=== PATIENT | female | born 2000 | race African-American/Black ===

== ENCOUNTER 2020-09-14 12:08 | Emergency (ER) | payer OTHER ==
[~2020-09-14] VITALS: Ht 162.6 cm; Wt 75.0 kg
[2020-09-14 12:20] VITALS: BP 125/66
[2020-09-14 13:12] LABS: BASO # 0.1 x10^3/uL (0.0-0.2); BASO % 1 % (0-3); EOS # 0.2 x10^3/uL (0.0-0.7); EOS % 3 % (0-3); HEMOGLOBIN 12.3 g/dL (12.0-15.5); LYMPH # 2.9 x10^3/uL (1.0-4.8); LYMPH % 36 % (24-48); MEAN CORPUSCULAR HEMOGLOBIN 22 pg (25-35); MEAN CORPUSCULAR HGB CONC 31 g/dL (31-37); MEAN CORPUSCULAR VOLUME 72 fL (79-100); MONO % 12 % (0-9); NEUT % 49 % (31-73); PLATELET COUNT 239 x10^3/uL (140-400); RED BLOOD COUNT 5.55 x10^6/uL (3.50-5.40); RED CELL DISTRIBUTION WIDTH 15.1 % (11.5-14.5); WHITE BLOOD COUNT 8.1 x10^3/uL (4.0-11.0)
[2020-09-14 13:29] LABS: ALBUMIN 3.7 g/dL (3.4-5.0); ALBUMIN/GLOBULIN RATIO 0.9 (1.0-1.7); CALCIUM 9.3 mg/dL (8.5-10.1); CREATININE 0.9 mg/dL (0.6-1.0); POTASSIUM 3.9 mmol/L (3.5-5.1); TOTAL BILIRUBIN 0.3 mg/dL (0.2-1.0); TOTAL PROTEIN 7.9 g/dL (6.4-8.2)
--- NOTE | 2020-09-14 14:20 | RAD ---
OB ultrasound less than 14 weeks to include transabdominal and transvaginal imaging 09/14/2020 CLINICAL HISTORY: First trimester with vaginal bleeding. TECHNIQUE: Using the distended urinary bladder as a sonographic window, a real-time ultrasound examination of thepelvis was performed. Additionally in an attempt to better evaluate the uterus and adnexa, a transvaginal ultrasound study was performed. Multiple images were obtained. FINDINGS: A gestational sac is seen within the endometrial canal within the body/fundus of the uterus. Sithin this gestational sac a yolk sac is seen. No embryonic pole is seen at this time to confirm a living IUP. The mean sac diameter of the gestational sac measures 1.1 cm. This corresponds to an estimated gestational age by ultrasound of 5 weeks 6 days plus or minus a standard deviation of 6 days. The uterus is otherwise within normal limits. Both ovaries are within normal limits in size and echogenicity. The right ovary measures 3.8 x 1.9 x 1.8 cm in size. Left ovary measures 2.5 x 1.6 x 1.1 cm in size. Small amount of free fluid is seen within the pelvis. No adnexal mass is seen. IMPRESSION: A gestational sac is seen within the endometrial canal of the uterus which has an estimated gestational age by ultrasound of 5 weeks 6 days plus or minus a standard deviation of 6 days. No embryonic pole is seen at this time time to confirm a living IUP. No adnexal mass is seen. A small amount of free fluid is seen within the pelvis. Electronically signed by: Melecio Paulino MD (09/14/2020 2:17 PM) [id number]
[2020-09-14 14:26] LABS: BACTERIA,URINE FEW /HPF (0-FEW); BILIRUBIN,URINE NEG (NEG); CLARITY,URINE HAZY; COLOR,URINE YELLOW; GLUCOSE,URINE NEG (NEG); NITRITE,URINE NEG (NEG); SQUAMOUS EPITHELIAL CELL,UR MANY /LPF; YEAST,URINE PRESENT /HPF
--- NOTE | 2020-09-14 14:46 | PHYS DOC ---
Past History Past Medical History: No Pertinent History Past Surgical History: No Surgical History Alcohol Use: None Adult General Chief Complaint Chief Complaint: VAGINAL BLEEDING HPI HPI Patient is a female 1 para 0 currently 5 weeks presenting to the ED today complaining of vaginal bleeding and that she noted this morning when she wiped herself after voiding. Patient denies any abdominal pain, cramping, nausea, vomiting. She states she has an appointment with an STATIC BALANCER on September 28, 2020. Review of Systems Review of Systems Constitutional: Denies fever or chills [] Eyes: Denies change in visual acuity, redness, or eye pain [] HENT: Denies nasal congestion or sore throat [] Respiratory: Denies cough or shortness of breath [] Cardiovascular: No additional information not addressed in HPI [] GI: Reports vaginal bleeding in . Denies abdominal pain, nausea, vomiting, bloody stools or diarrhea [] : Denies dysuria or hematuria [] Musculoskeletal: Denies back pain or joint pain [] Integument: Denies rash or skin lesions [] Neurologic: Denies headache, focal weakness or sensory changes [] All other systems were reviewed and found to be within normal limits, except as documented in this note. Allergies Allergies Allergies Coded Allergies Type Severity Reaction Last Updated Verified shellfish derived Allergy Severe throat edema 09/14/20 Yes Physical Exam Physical Exam Constitutional: Well developed, well nourished, no acute distress, non-toxic appearance. [] HENT: Normocephalic, atraumatic, bilateral external ears normal, oropharynx moist, no oral exudates, nose normal. [] Eyes: PERRLA, EOMI, conjunctiva normal, no discharge. [] Neck: Normal range of motion, no tenderness, supple, no stridor. [] Cardiovascular:Heart rate regular rhythm, no murmur [] Lungs & Thorax: Bilateral breath sounds clear to auscultation [] Abdomen: Bowel sounds normal, soft, no tenderness, no masses, no pulsatile masses. [] Pelvic exam External pelvic appears normal, cervix visualized, closed, no CMT, no adnexal tenderness, no bleeding noted, trace amount of thick vaginal discharge noted in the vaginal vault. Skin: Warm, dry, no erythema, no rash. [] Back: No tenderness, no CVA tenderness. [] Extremities: No tenderness, no cyanosis, no clubbing, ROM intact, no edema. [] Neurologic: Alert and oriented X 3, normal motor function, normal sensory function, no focal deficits noted. [] Psychologic: Affect normal, judgement normal, mood normal. [] Current Patient Data Vital Signs Vital Signs Date Time Temp Pulse Resp B/P (MAP) Pulse Ox O2 Delivery O2 Flow Rate FiO2 09/14/20 12:20 99.6 92 16 125/66 (85) 99 Room Air Lab Results Laboratory Tests Test 09/14/20 12:53 09/14/20 13:17 09/14/20 13:35 White Blood Count 8.1 x10^3/uL (4.0-11.0) Red Blood Count 5.55 x10^6/uL (3.50-5.40) H Hemoglobin 12.3 g/dL (12.0-15.5) Hematocrit 40.0 % (36.0-47.0) Mean Corpuscular Volume 72 fL (79-100) L Mean Corpuscular Hemoglobin 22 pg (25-35) L Mean Corpuscular Hemoglobin Concent 31 g/dL (31-37) Red Cell Distribution Width 15.1 % (11.5-14.5) H Platelet Count 239 x10^3/uL (140-400) Neutrophils (%) (Auto) 49 % (31-73) Lymphocytes (%) (Auto) 36 % (24-48) Monocytes (%) (Auto) 12 % (0-9) H Eosinophils (%) (Auto) 3 % (0-3) Basophils (%) (Auto) 1 % (0-3) Neutrophils # (Auto) 4.0 x10^3uL (1.8-7.7) Lymphocytes # (Auto) 2.9 x10^3/uL (1.0-4.8) Monocytes # (Auto) 1.0 x10^3/uL (0.0-1.1) Eosinophils # (Auto) 0.2 x10^3/uL (0.0-0.7) Basophils # (Auto) 0.1 x10^3/uL (0.0-0.2) Platelet Estimate Pending Maternal Serum HCG Beta Subunit 32197 mIU/mL (0-6) H Sodium Level 137 mmol/L (136-145) Potassium Level 3.9 mmol/L (3.5-5.1) Chloride Level 103 mmol/L (98-107) Carbon Dioxide Level 23 mmol/L (21-32) Anion Gap 11 (6-14) Blood Urea Nitrogen 11 mg/dL (7-20) Creatinine 0.9 mg/dL (0.6-1.0) Estimated GFR (Cockcroft-Gault) 79.0 BUN/Creatinine Ratio 12 (6-20) Glucose Level 74 mg/dL (70-99) Calcium Level 9.3 mg/dL (8.5-10.1) Total Bilirubin 0.3 mg/dL (0.2-1.0) Aspartate Amino Transferase (AST) 16 U/L (15-37) Alanine Aminotransferase (ALT) 16 U/L (14-59) Alkaline Phosphatase 79 U/L (46-116) Total Protein 7.9 g/dL (6.4-8.2) Albumin 3.7 g/dL (3.4-5.0) Albumin/Globulin Ratio 0.9 (1.0-1.7) L Urine Collection Type Unknown Urine Color Yellow Urine Clarity Hazy Urine pH 7.5 Urine Specific [place] 1.025 Urine Protein Neg (NEG-TRACE) Urine Glucose (UA) Neg mg/dL (NEG) Urine Ketones (Stick) 40 mg/dL (NEG) Urine Blood Mod (NEG) Urine Nitrite Neg (NEG) Urine Bilirubin Neg (NEG) Urine Urobilinogen Dipstick 1.0 mg/dL (0.2 mg/dL) Urine Leukocyte Esterase Mod (NEG) Urine RBC 1-2 /HPF (0-2) Urine WBC 5-10 /HPF (0-4) Urine Squamous Epithelial Cells Many /LPF Urine Bacteria Few /HPF (0-FEW) Urine Yeast Present /HPF POC Urine HCG, Qualitative hcg positive (Negative) Microbiology 09/14/20 Wet Prep - Final, Complete EKG EKG [] Radiology/Procedures Radiology/Procedures []PROCEDURE: OB <14 WKS W/TV OB ultrasound less than 14 weeks to include transabdominal and transvaginal imaging 09/14/2020 CLINICAL HISTORY: First trimester with vaginal bleeding. TECHNIQUE: Using the distended urinary bladder as a sonographic window, a real-time ultrasound examination of thepelvis was performed. Additionally in an attempt to better evaluate the uterus and adnexa, a transvaginal ultrasound study was performed. Multiple images were obtained. FINDINGS: A gestational sac is seen within the endometrial canal within the body/fundus of the uterus. Sithin this gestational sac a yolk sac is seen. No embryonic pole is seen at this time to confirm a living IUP. The mean sac diameter of the gestational sac measures 1.1 cm. This corresponds to an estimated gestational age by ultrasound of 5 weeks 6 days plus or minus a standard deviation of 6 days. The uterus is otherwise within normal limits. Both ovaries are within normal limits in size and echogenicity. The right ovary measures 3.8 x 1.9 x 1.8 cm in size. Left ovary measures 2.5 x 1.6 x 1.1 cm in size. Small amount of free fluid is seen within the pelvis. No adnexal mass is seen. IMPRESSION: A gestational sac is seen within the endometrial canal of the uterus which has an estimated gestational age by ultrasound of 5 weeks 6 days plus or minus a standard deviation of 6 days. No embryonic pole is seen at this time time to confirm a living IUP. No adnexal mass is seen. A small amount of free fluid is seen within the pelvis. Electronically signed by: Melecio Grove MD (09/14/2020 2:17 PM) [id number] DICTATED AND SIGNED BY: MELECIO GROVE MD DATE: 09/14/201416 CC: ANMOL; JOVON TIWARI APRN; PCP,UNKNOWN ~ Heart Score Risk Factors: Risk Factors: DM, Current or recent (<one month) smoker, HTN, HLP, family history of CAD, obesity. Risk Scores: Risk Factors: DM, Current or recent (<one month) smoker, HTN, HLP, family history of CAD, obesity. Course & Med Decision Making Course & Med Decision Making Pertinent Labs and Imaging studies reviewed. (See chart for details) This is a 20-year-old female patient 1 para 0 currently 5 weeks presenting to the ED today with vaginal bleeding and that began toda y, she states she wiped herself and noted blood once. No active bleeding right now. Positive urine hCG, beta-hCG 18,135. Blood group O+, hemoglobin 12.3 hematocrit 40, vitals are stable, urine positive for UTI and yeast, wet prep is negative. Discharged with cephalexin for UTI. Miconazole for yeast infection. OB ultrasound noted for an IUP 5 weeks 6 days.No embryonic pole is seen at this time time to confirm a living IUP. No adnexal mass is seen. A small amount of free fluid is seen within the pelvis. Patient has a follow-up appointment with an STATIC BALANCER September 28, 2020. She was provided instructions including the need to observe pelvic rest. Follow-up with your STATIC BALANCER as scheduled. Instructed to return to the ED at any point symptoms worsen. Dragon Disclaimer Dragon Disclaimer This electronic medical record was generated, in whole or in part, using a voice recognition dictation system. Departure Departure: Impression: Primary Impression: Urinary tract infection during Additional Impressions: Yeast infection Threatened miscarriage Disposition: 01 DC HOME SELF CARE/HOMELESS Condition: STABLE Referrals: PCP,UNKNOWN (PCP) follow up with your OBGYN as soon as you can or as scheduled on 09/28/20 Patient Instructions: Threatened Miscarriage, [id number], Urinary Tract Infection Additional Instructions: You were evaluated in the emergency room for vaginal bleeding and . Your ultrasound showed a 5 weeks 6 days . With the vaginal bleeding we recommended no sexual intercourse until the bleeding has stopped or you have been seen by STATIC BALANCER. No lifting or doing any strenuous activities until seen by the OBGYN. You also have urinary tract infection. Take the prescribed antibiotics until completed. You also have yeast infection in your urine use o jhony the counter miconazole as ordered. Please come to the ED at any point symptoms worsen. Scripts Miconazole Nitrate (MONISTAT 3) 15 Gm Crm.pf.francie 1 APPFUL VG QHS for 3 Days, #15 GM 0 Refills Prov: JOVON TIWARI APRN 09/14/20 Cephalexin (CEPHALEXIN) 500 Mg Tablet 1 TAB PO BID, #14 TAB Prov: JOVON TIWARI APRN 09/14/20 Problem Qualifiers Primary Impression: Urinary tract infection during Trimester: first trimester Qualified Codes: O23.41 - Unspecified infection of urinary tract in , first trimester JOVON TIWARI APRN Sep 14, 2020 14:46
[2020-09-14] MEDS ORDERED: MICO15CR7 VG (14:52)
[2020-09-14] MEDS ORDERED: CEPH500T PO (14:52)
[2020-09-14 15:06] LABS: HYPOCHROMIA MOD; MICROCYTOSIS SLIGHT; PLT ESTIMATE ADEQUATE (ADEQUATE)
[2020-09-15 20:09] LABS: CHLAMYDIA PROBE Negative (Negative)
== END 2020-09-14 15:04 | disposition home or self-care (01) ==
LOC: ER 12:08
DX: O23.41 Unspecified infection of urinary tract in pregnancy, first trimester (principal); O20.0 Threatened abortion; O98.811 Other maternal infectious and parasitic diseases complicating pregnancy, first trimester; B37.89 Other sites of candidiasis; Z3A.01 Less than 8 weeks gestation of pregnancy; Z88.8 Allergy status to other drugs, medicaments and biological substances
CPT/HCPCS: 36415; 76801; 76817; 80053; 81001; 81025; 84702; 85025; 86850; 86900; 86901; 87491; 87591; 99284; Q0111